=== PATIENT | female | born 1975 | race American Indian/Alaskan Native ===

== ENCOUNTER 2018-03-01 12:45 | Outpatient (CLI) | payer OTHER ==
--- NOTE | 2018-03-01 14:18 | XRay Report ---
BILATERAL ELBOW, 3 VIEWS History: Bilateral elbow pain. Findings: Normal bone mineralization. No acute osseous findings or joint pathology is identified. The soft tissues are within normal limits. Impression: Unremarkable bilateral elbows.
--- NOTE | 2018-03-01 20:14 | XRay Report ---
FINAL REPORT PROCEDURE: XR HIP 2-3V LT TECHNIQUE: LEFT hip radiographs, 2 views each, including AP view of the pelvis. HISTORY: PAIN IN HIP COMPARISON: No prior studies are available for comparison. FINDINGS: Fracture (s) and/or Dislocation(s): None . Joint space(s): Normal. Soft tissues: Normal. Bone mineralization: Normal. Foreign bodies: None. IMPRESSION: Normal Examination.
--- NOTE | 2018-03-01 20:16 | XRay Report ---
FINAL REPORT PROCEDURE: XR FOOT BILAT 3+V TECHNIQUE: BILATERAL foot radiographs, including AP, lateral, and oblique views. HISTORY: PAIN IN FOOT COMPARISON: No prior studies are available for comparison. FINDINGS: RIGHT FOOT: Fracture (s) and/or Dislocation(s): None. Alignment: Normal. Joint space(s): Normal. Soft tissues: Normal. Bone mineralization: Normal. Foreign bodies: None . Calcaneal spurring: There are small inferior and posterior calcaneal spurs. LEFT FOOT: Fracture (s) and/or Dislocation(s): None. Alignment: Normal. Joint space(s): Normal. Soft tissues: Normal. Bone mineralization: Normal. Foreign bodies: None . Calcaneal spurring: There is a small inferior calcaneal spur. IMPRESSION: There are no fractures or malalignments. There is no significant degenerative change. There are bilateral calcaneal spurs.
--- NOTE | 2018-03-01 20:18 | XRay Report ---
FINAL REPORT PROCEDURE: XR HAND BILAT 3+V TECHNIQUE: Bilateral hand radiographs, PA views of each hand. HISTORY: PAIN IN HAND COMPARISON: No prior studies are available for comparison. FINDINGS: RIGHT HAND: Fracture (s) and/or Dislocation(s): None. Alignment: Normal. Joint space(s): Normal. Soft tissues: Normal. Bone mineralization: Normal. Foreign bodies: None . Calcaneal spurring: None. LEFT HAND: Fracture (s) and/or Dislocation(s): None. Alignment: Normal. Joint space(s): Normal. Soft tissues: Normal. Bone mineralization: Normal. Foreign bodies: None . Calcaneal spurring: None. IMPRESSION: Normal Examination.
--- NOTE | 2018-03-01 20:20 | XRay Report ---
FINAL REPORT PROCEDURE: XR SPINE LUMBOSACRAL 4+V TECHNIQUE: Lumbar spine radiographs, including AP, lateral, bilateral oblique, flexion, and extension views. CPT 25471 HISTORY: PAIN IN LOWER BACK COMPARISON: No prior studies are available for comparison. FINDINGS: Alignment in neutral position: Normal . Vertebral body movement with flexion and extension: Physiologic . Vertebral body heights/Disk spaces: There is mild loss of disc height at L5-S1.. Fracture(s): None . Facets: There is bilateral facet hypertrophy at L3-L4 through L5-S1 with bilateral foraminal narrowing at L5-S1.. Bone mineralization: Normal . IMPRESSION: There are degenerative changes as described. There are no fractures or malalignments..
--- NOTE | 2018-03-01 20:23 | XRay Report ---
FINAL REPORT PROCEDURE: XR KNEES STANDING AP BILATERAL TECHNIQUE: Bilateral knee radiographs, standing AP view. HISTORY: PAIN IN KNEE COMPARISON: No prior studies are available for comparison. FINDINGS: Fracture (s) and/or Dislocation(s): None . Joint space(s): There is degenerative arthrosis of the medial knee compartments greater on the right. Soft tissues: Normal. Bone mineralization: Normal. Foreign bodies: None. IMPRESSION: There is no fracture. There is degenerative arthrosis of the medial knee compartments greater on the right.
--- NOTE | 2018-03-01 20:24 | XRay Report ---
FINAL REPORT PROCEDURE: XR SHOULDER BILAT 2+V TECHNIQUE: BILATERAL shoulder radiographs including AP views in internal and external rotation and abduction. HISTORY: PAIN IN SHOULDER COMPARISON: No prior studies are available for comparison. FINDINGS: Fracture(s) and/or Dislocation(s): None. Joint space(s): Normal. Soft tissues: Normal. Bone mineralization: Normal. Foreign bodies: None. IMPRESSION: Normal Examination
--- NOTE | 2018-03-01 20:25 | XRay Report ---
FINAL REPORT PROCEDURE: XR WRIST BILAT 3+V TECHNIQUE: Bilateral wrist radiographs, including AP, lateral, and oblique views. CPT 92587 HISTORY: PAIN IN WRIST COMPARISON: No prior studies are available for comparison. FINDINGS: Fracture (s) and/or Dislocation(s): None . Alignment: Normal . Joint space(s): Normal . Soft tissues: Normal . Bone mineralization: Normal . Foreign bodies: None . IMPRESSION: Normal Examination.
== END 2018-03-01 12:46 | disposition home or self-care (01) ==
LOC: XRAY 12:45
PROVIDERS: ATTEND Orthopaedic Surgery
DX: M48.07 Spinal stenosis, lumbosacral region (principal); M47.896 Other spondylosis, lumbar region; M17.0 Bilateral primary osteoarthritis of knee; M77.32 Calcaneal spur, left foot; M77.31 Calcaneal spur, right foot; M25.531 Pain in right wrist; M25.532 Pain in left wrist; M25.511 Pain in right shoulder; M25.512 Pain in left shoulder; M79.642 Pain in left hand; M79.641 Pain in right hand; M25.552 Pain in left hip; M25.521 Pain in right elbow; M25.522 Pain in left elbow
CPT/HCPCS: 72110; 73565

== ENCOUNTER 2018-03-23 12:45 | Outpatient (CLI) | payer OTHER ==
--- NOTE | 2018-03-23 13:26 | XRay Report ---
Right knee 2 views: History: Pain right knee. Findings: Marked narrowing noted of the medial and patellofemoral compartment knee joint. Sclerotic articular surfaces with osteophyte suggestive of severe degenerative changes. No fracture or joint effusion. Impression: Severe degenerative changes medial and patellofemoral compartment knee joint.
== END 2018-03-23 12:46 | disposition home or self-care (01) ==
LOC: XRAY 12:45
PROVIDERS: ATTEND Orthopaedic Surgery
DX: M17.11 Unilateral primary osteoarthritis, right knee (principal)

== ENCOUNTER 2018-03-23 13:00 | Inpatient (IN) | payer OTHER ==
--- NOTE | 2018-03-23 12:12 | Anesthesia Consultation ---
Anesthesia Consult and Med Hx - Airway Anesthetic Teeth Evaluation: Good ROM Head & Neck: Adequate Mental/Hyoid Distance: Adequate Mallampati Class: Class II Intubation Access Assessment: Good - Pulmonary Exam CTA: Yes - Cardiac Exam Cardiac Exam: RRR - Pre-Operative Health Status ASA Pre-Surgery Classification: ASA3 Proposed Anesthetic Plan: General Nerve Block: Femoral - Pulmonary Hx Smoking: No Hx Sleep Apnea: No (SULAIMAN PRE SCREEN HIGH RISK) - Cardiovascular System Hx Hypertension: Yes (X 10 YRS) - Central Nervous System Hx Back Pain: Yes - Hematic Hx Anemia: Yes - Other Systems Hx Cancer: No
[~2018-03-23 13:00] MED LIST: LACTATED RINGERS 1,000 ML IV SCH; VERSED IV NR
[2018-03-31] MEDS ORDERED: ANCEF/STERILE WATER 2 GM/20 ML IV NR (00:01)
[2018-03-31] MEDS ORDERED: VERSED IV NR (06:00)
[2018-03-31] MEDS ORDERED: NACL BACTERIOSTATIC INFILTRATI ONE (06:42)
[2018-03-31] MEDS ORDERED: XYLOCAINE 1% 20 mL INFILTRATI NR (07:00)
[2018-03-31] MEDS ORDERED: MARCAINE 0.5% INFILTRATI NR (07:00)
[2018-03-31] MEDS ORDERED: SUBLIMAZE IV ONE (07:00)
[2018-03-31] MEDS ORDERED: DECADRON ONE (07:18)
[2018-03-31] MEDS ORDERED: TORADOL ONE (07:32)
[2018-03-31] MEDS ORDERED: DEPO-MEDROL ONE (07:32)
[2018-03-31] MEDS ORDERED: MORPHINE ONE (07:33)
[2018-03-31] MEDS ORDERED: TRANEXAMIC ACID ONE (07:33)
[2018-03-31] MEDS ORDERED: NEOSPORIN GU IR ONE (07:33)
[2018-03-31] MEDS ORDERED: MARCAINE 0.5% 30 ML INFILTRATI ONE (07:33)
[2018-03-31] MEDS ORDERED: NACL ONE (07:42)
[2018-03-31] MEDS ORDERED: NACL 0.9% 100 ML ONE (07:42)
[2018-03-31] MEDS ORDERED: SUBLIMAZE ONE ×2 (08:03→08:53)
[2018-03-31] MEDS ORDERED: XYLOCAINE MPF 2% ONE (08:03)
[2018-03-31] MEDS ORDERED: DIPRIVAN 10 MG/ML IV ONE (08:03)
[2018-03-31] MEDS ORDERED: ZOFRAN ONE (08:03)
[2018-03-31] MEDS ORDERED: REGLAN ONE (08:04)
[2018-03-31] MEDS ORDERED: TRANEXAMIC ACID IV ONE (08:15)
[2018-03-31] MEDS ORDERED: ePHEDrine SULFATE ONE (08:20)
[2018-03-31] MEDS ORDERED: LACTATED RINGERS 1,000 ML ONE ×2 (08:24→09:59)
[2018-03-31] MEDS ORDERED: NEO SYNEPHRINE/NS Syringe(OR USE) IV ONE (08:35)
[2018-03-31] MEDS ORDERED: ROBINUL ONE (08:44)
[2018-03-31] MEDS ORDERED: DILAUDID ONE ×2 (09:38→11:00)
[2018-03-31] MEDS ORDERED: ZOFRAN IV PRN (10:17)
[2018-03-31] MEDS ORDERED: DEMEROL IV PRN (10:17)
--- NOTE | 2018-03-31 10:21 | Anesthesia Day of Surgery ---
Anesthesia Day of Surgery - Day of Surgery Patient Examined: Yes Patient H&P Reviewed: Yes Patient is NPO: Yes
--- NOTE | 2018-03-31 10:21 | Anesthesia Consultation ---
Anesthesia Consult and Med Hx Date of service: 03/31/18 - Airway Anesthetic Teeth Evaluation: Good ROM Head & Neck: Adequate Mental/Hyoid Distance: Adequate Mallampati Class: Class III Intubation Access Assessment: Possibly Difficult - Pulmonary Exam CTA: Yes - Cardiac Exam Cardiac Exam: RRR - Pre-Operative Health Status ASA Pre-Surgery Classification: ASA3 Proposed Anesthetic Plan: General - Pulmonary Hx Smoking: No Hx Sleep Apnea: No (SULAIMAN PRE SCREEN HIGH RISK) - Cardiovascular System Hx Hypertension: Yes (X 10 YRS) - Central Nervous System Hx Back Pain: Yes - Hematic Hx Anemia: Yes - Other Systems Hx Cancer: No
[2018-03-31] MEDS ORDERED: TORADOL IV ONE ×2 (10:32)
[2018-03-31] MEDS ORDERED: MARCAINE 0.5% INFILTRATI ONE ×2 (10:32)
[2018-03-31] MEDS ORDERED: MORPHINE IM ONE ×4 (10:32)
--- NOTE | 2018-03-31 11:24 | Procedure Note ---
Date of procedure: 03/31/18 Pre-op diagnosis: severe arthritis left knee Post-op diagnosis: same Procedure: Left total knee replacement Procedure The patient was brought to the OR after being given a femoral nerve block and preoperative holding she onto the OR table in the supine position following induction intubation by anesthesia the patient's left lower extremity was prepped and draped in the usual sterile manner. A timeout procedure was done to identify the patient and the correct operative site using the Blount leg positioner A midline incision was made centered over the patella this was taken down sharply through skin and subcutaneous the patella and patellar retinacula were identified next the A parapatellar incision was made medially this is then carried up into the quadriceps tendon and the patella was then everted and the knee flexed to 90 of flexion examination of the knee revealed severe osteoarthritic changes with peripheral osteophytes and significant wear on both the medial and lateral compartments as well as the patellofemoral joint following this a drill bit was used to enter the distal femoral canal this was followed by application of the distal femoral cutting jig care was taken to resect approximately 9 mm of distal femur following this attention was turned to the proximal tibia again using the external alignment guide approximately 9- 10 mm of distal tibia proximal tibia was resected including the anterior posterior cruciate ligaments care was taken to protect the collateral ligaments. The anterior-posterior and chamfer cuts were made following yue a +4 femoral component was selected this was then followed by sizing of the tibial tray which measured 3 NW. 3 again fixation holes were applied to the proximal tibia. Trial components were inserted and the knee was taken through a range of motion and was found to be stable next the trial components were removed the meniscal and peripheral osteophytes were again removed as well this is followed by pulse lavage of the knee joint the cement was then mixed and applied to the proximal tibia and the tourniquet was inflated to 300 mmHg care was taken to remove any excess blood and soft tissue debris at this point the tibial tray was inserted using cement technique this was followed by insertion of a 10 mm polyethylene insert the knee was then flexed to 90 and the femoral component was inserted again using cement technique care was taken to remove any excess bone cement the knee was then placed and full extension until the cement hardened following hardening of cement the knee was then flexed to 90 and any residual bony instruments and cement debris was removed at this time . The medial patellar retinaculum was then repaired using #1 Vicryl in an interrupted interrupted mattress fashion. Deep subcutaneous was closed with a 0 and 2-0 Vicryl metallic charito were applied to the skin as well as routine postop dressings patient tolerated the procedure there were no complications she was taken to postanesthesia recovery in stable condition ng Anesthesia: GETA, [facility] Surgeon: DAR VELIZ Estimated blood loss: other (300 mL) Pathology: none Condition: stable Disposition: PACU
[2018-03-31] MEDS: DILAUDID IV PRN ×2 (11:25→11:35)
[2018-03-31] MEDS ORDERED: HCTZ PO SCH (12:00)
[2018-03-31] MEDS ORDERED: SODIUM CHLORIDE FLUSH SYRINGE 10 ML IV NR (12:00)
[2018-03-31] MEDS ORDERED: ZESTRIL PO SCH (12:00)
[2018-03-31] MEDS: PERCOCET 5/325 PO PRN ×2 (12:27→17:44)
--- NOTE | 2018-03-31 12:48 | XRay Report ---
Left knee 2 views: History: Post operative evaluation. Findings: There is total knee replacement noted. The femoral and tibial component is anatomic and in alignment. Postop soft tissue changes. No evidence of acute fracture. Impression: Stable total knee.
[2018-03-31] MEDS: COLACE PO SCH ×3 (13:49→21:57)
[2018-03-31] MEDS ORDERED: ANCEF/NS 1 GM/50 ML 1 GM/50 ML BAG IV SCH (14:00)
[2018-03-31] MEDS: MORPHINE IV PRN ×3 (14:55→22:39)
[2018-03-31] MEDS: ceFAZolin 1 GM in NACL 0.9% 20 ML IV SCH ×2 (14:55→21:56)
[2018-03-31] MEDS: LACTATED RINGERS 1,000 ML IV SCH (15:04)
--- NOTE | 2018-03-31 18:22 | Post Anesthesia Evaluation ---
- Post Anesthesia Evaluation Patient Participated: Yes Airway Patent: Yes Stable Respiratory Function: Yes Nausea/Vomiting: No Temp > 96.8F: Yes Pain Manageable: Yes Adequeate Hydration: Yes Anesthesia Complications: No
[2018-04-01] MEDS: PERCOCET 5/325 PO PRN ×4 (01:27→20:09)
[2018-04-01] MEDS: MORPHINE IV PRN ×4 (04:19→18:44)
[2018-04-01 04:48] LABS: Hematocrit 30.2 % (30.3-42.9); Hemoglobin 10.1 gm/dl (10.1-14.3)
[2018-04-01] MEDS: LACTATED RINGERS 1,000 ML IV SCH ×2 (06:28→16:29)
[2018-04-01] MEDS: COLACE PO SCH ×3 (07:59→21:44)
[2018-04-01] MEDS ORDERED: HCTZ PO SCH (10:00)
[2018-04-01] MEDS ORDERED: ZESTRIL PO SCH (10:00)
[2018-04-01] MEDS ORDERED: NON-FORMULARY (Lisinopril/Hydrochlorothiazide [Zestoretic 10-12.5 Mg Tablet] 1 EACH) PO SCH (10:00)
[2018-04-01] MEDS: HCTZ PO SCH (11:49)
[2018-04-01] MEDS: LOVENOX SUB-Q SCH (11:49)
[2018-04-01] MEDS: ZESTRIL PO SCH (11:49)
--- NOTE | 2018-04-01 12:57 | Progress Note ---
Assessment and Plan s/p left TKR, doing well will dc to home soon, awaiting DME's for home use.... Subjective Date of service: 04/01/18 Interval history: c/o pain after PT session, otherwise ok... Objective Vital signs: Vital Signs - 12hr 04/01/18 04/01/18 04/01/18 05:51 07:06 11:00 Temperature 98.8 F 98.3 F 98.6 F Pulse Rate 82 79 Respiratory 18 Rate Blood Pressure 90/42 Blood Pressure 113/62 [Left] O2 Sat by Pulse 99 Oximetry 04/01/18 11:49 Temperature Pulse Rate 79 Respiratory Rate Blood Pressure 113/62 Blood Pressure [Left] O2 Sat by Pulse Oximetry Narrative Exam: post op dressing intact, neg Jose Daniel's , good capillary refill - Labs CBC & BMP: 04/01/18 04:15 04/01/18 04:15 Labs: Abnormal lab results 04/01/18 04/01/18 Range/Units 04:15 11:35 Hct 30.2 L (30.3-42.9) % POC Glucose 111 H (70-105)
[2018-04-01] MEDS: TORADOL IV PRN (18:42)
[2018-04-02] MEDS: MORPHINE IV PRN (01:03)
[2018-04-02] MEDS: LACTATED RINGERS 1,000 ML IV SCH (03:03)
[2018-04-02] MEDS: PERCOCET 5/325 PO PRN ×2 (06:39→11:56)
[2018-04-02] MEDS: TORADOL IV PRN ×2 (09:20→14:56)
[2018-04-02] MEDS: HCTZ PO SCH (09:21)
[2018-04-02] MEDS: COLACE PO SCH (09:21)
[2018-04-02] MEDS: LOVENOX SUB-Q SCH (09:21)
[2018-04-02] MEDS: ZESTRIL PO SCH (09:22)
[2018-04-02 12:09] VITALS: BP 149/61
== END 2018-04-02 16:15 | disposition home health service (06) | DRG 470 ==
LOC: 3A 03-31 06:05 → 3B-SURG 03-31 12:38
PROVIDERS: ADMIT Orthopaedic Surgery; ATTEND Orthopaedic Surgery
PROC: 0SRD0J9 Replacement of Left Knee Joint with Synthetic Substitute, Cemented, Open Approach (ICD-10-PCS; principal; 2018-03-31)
DX: M17.12 Unilateral primary osteoarthritis, left knee (principal); D64.9 Anemia, unspecified; I10 Essential (primary) hypertension; F32.9 Major depressive disorder, single episode, unspecified; G43.909 Migraine, unspecified, not intractable, without status migrainosus; M54.5 Low back pain
CPT/HCPCS: 36415; 64450; 82565; 82962; 85014; 85018; 88305; C1776; J0690; J1030; J1100; J1170; J1650; J1885; J2175; J2250; J2270; J2370; J2405; J2704; J2765; J3010; J7120

== ENCOUNTER 2018-03-25 10:16 | Outpatient (CLI) | payer OTHER ==
--- NOTE | 2018-03-25 10:59 | XRay Report ---
LEFT KNEE RADIOGRAPHS INDICATION: Left knee pain. COMPARISON: 03/01/2018. FINDINGS: AP and lateral left knee radiographs again demonstrate moderate to severe patellofemoral and medial compartments joint space narrowing and degenerative spurring. Superior patellar and anterior tibial tubercle enthesophytes. No suprapatellar effusion. CONCLUSION: Severe left knee osteoarthrosis, as described, advanced for the patient's age, etiology unknown. Please correlate. Thank you for the opportunity to participate in this patient's care.
== END 2018-03-25 10:17 | disposition home or self-care (01) ==
LOC: XRAY 10:16
PROVIDERS: ATTEND Orthopaedic Surgery
DX: M17.12 Unilateral primary osteoarthritis, left knee (principal); M76.52 Patellar tendinitis, left knee

== ENCOUNTER 2022-03-06 05:48 | Emergency (ER) | payer OTHER ==
[2022-03-06 06:03] VITALS: BP 140/79
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
== END 2022-03-06 10:03 | disposition home or self-care (01) ==
LOC: ED 05:48
DX: S76.811A Strain of other specified muscles, fascia and tendons at thigh level, right thigh, initial encounter (principal); S46.811A Strain of other muscles, fascia and tendons at shoulder and upper arm level, right arm, initial encounter; M19.90 Unspecified osteoarthritis, unspecified site; I10 Essential (primary) hypertension; K21.9 Gastro-esophageal reflux disease without esophagitis; Z79.899 Other long term (current) drug therapy; V87.7XXA Person injured in collision between other specified motor vehicles (traffic), initial encounter; Y93.89 Activity, other specified; Y92.488 Other paved roadways as the place of occurrence of the external cause; Y99.8 Other external cause status
CPT/HCPCS: 99283